=== PATIENT | female | born 1980 | race African-American/Black ===

== ENCOUNTER 2018-11-28 21:03 | Emergency (ER) | payer MEDICAID ==
[~2018-11-28] VITALS: Ht 165.1 cm; Wt 77.0 kg
[2018-11-29 00:16] VITALS: BP 116/71
== END 2018-11-29 00:17 | disposition home or self-care (01) ==
LOC: ER 21:03
DX: K04.7 Periapical abscess without sinus (principal); F17.210 Nicotine dependence, cigarettes, uncomplicated; Z98.890 Other specified postprocedural states
CPT/HCPCS: 99283

== ENCOUNTER 2020-07-13 08:48 | Emergency (ER) | payer MEDICAID ==
[~2020-07-13] VITALS: Ht 162.6 cm; Wt 90.0 kg
[2020-07-13 09:42] VITALS: BP 130/85
== END 2020-07-13 10:50 | disposition home or self-care (01) ==
LOC: ER 08:55
DX: Z00.00 Encounter for general adult medical examination without abnormal findings (principal); J45.909 Unspecified asthma, uncomplicated; Z98.890 Other specified postprocedural states
CPT/HCPCS: 99281

== ENCOUNTER 2021-02-05 17:19 | Emergency (ER) | payer MEDICAID, OTHER ==
[~2021-02-05] VITALS: Ht 162.6 cm; Wt 86.0 kg
[2021-02-05 17:32] VITALS: BP 124/78
== END 2021-02-05 18:20 | disposition home or self-care (01) ==
LOC: ER 17:33
DX: F43.0 Acute stress reaction (principal); F41.9 Anxiety disorder, unspecified; F32.A Depression, unspecified; J45.909 Unspecified asthma, uncomplicated; Z98.890 Other specified postprocedural states
CPT/HCPCS: 99281

== ENCOUNTER 2021-07-20 10:37 | Emergency (ER) | payer OTHER ==
[~2021-07-20] VITALS: Ht 170.2 cm; Wt 75.0 kg
[2021-07-20] MEDS ORDERED: METHOCARBAMOL 500MG TABLET PO ONE (11:15)
[2021-07-20] MEDS ORDERED: HYDROCODONE/ACETAMINOPHEN 5/325MG TABLET PO ONE (11:15)
[2021-07-20] MEDS ORDERED: METH-773 MT ×3 (16:55→18:06)
[2021-07-20] MEDS ORDERED: HYDR-4001 MT ×3 (16:55→18:06)
[2021-07-20 17:30] VITALS: BP 121/79
== END 2021-07-20 17:30 | disposition home or self-care (01) ==
LOC: ER 10:37
DX: S32.2XXA Fracture of coccyx, initial encounter for closed fracture (principal); S09.8XXA Other specified injuries of head, initial encounter; S16.1XXA Strain of muscle, fascia and tendon at neck level, initial encounter; J45.909 Unspecified asthma, uncomplicated; F41.9 Anxiety disorder, unspecified; F32.A Depression, unspecified; Z98.890 Other specified postprocedural states; Z91.013 Allergy to seafood; V43.52XA Car driver injured in collision with other type car in traffic accident, initial encounter; Y93.89 Activity, other specified; Y92.488 Other paved roadways as the place of occurrence of the external cause
CPT/HCPCS: 72220; 81025; 99284

== ENCOUNTER 2022-02-03 10:17 | Emergency (ER) | payer OTHER ==
[~2022-02-03] VITALS: Ht 165.1 cm; Wt 75.0 kg
[~2022-02-03 10:17] MED LIST: HYDR-4001 MT; METH-773 MT
[2022-02-03 10:35] VITALS: BP 123/82
[2022-02-03] MEDS ORDERED: IBUPROFEN 600MG TABLET PO ONE (12:15)
[2022-02-03] MEDS ORDERED: IBUP-2029 MT (12:25)
[2022-02-03] MEDS ORDERED: ACET-2708 MT (12:39)
== END 2022-02-03 12:57 | disposition home or self-care (01) ==
LOC: ER 10:17
DX: M77.8 Other enthesopathies, not elsewhere classified (principal); F41.9 Anxiety disorder, unspecified; F32.A Depression, unspecified; J45.909 Unspecified asthma, uncomplicated; Z98.890 Other specified postprocedural states; Z91.013 Allergy to seafood
CPT/HCPCS: 29125; 73130; 99283

== ENCOUNTER 2022-04-09 19:02 | Emergency (ER) | payer OTHER ==
[~2022-04-09] VITALS: Ht 165.1 cm; Wt 205.0 kg
[~2022-04-09 19:02] MED LIST changes: +ACET-2708 MT
[2022-04-09 19:07] VITALS: BP 161/95
[2022-04-09] MEDS ORDERED: BENZ100C86 PO (21:02)
== END 2022-04-09 21:17 | disposition home or self-care (01) ==
LOC: ER 19:10
DX: J06.9 Acute upper respiratory infection, unspecified (principal); R05.9 Cough, unspecified; Z79.899 Other long term (current) drug therapy
CPT/HCPCS: 71045; 99283